=== PATIENT | male | born 1965 | race Caucasian/White ===

== ENCOUNTER 2017-01-29 06:22 | Emergency (ER) | payer MEDICAID, OTHER ==
[~2017-01-29] VITALS: Ht 175.3 cm; Wt 71.0 kg
[~2017-01-29 06:22] MED LIST: BEN50; DIVA500T33; SERAQUEL; VENTOLIN; [UNRECOGNIZED DRUG - CODE]
[2017-01-29 06:57] VITALS: Ht 175.3 cm; Wt 71.0 kg
[2017-01-29] MEDS ORDERED: MED4DP PO (07:20)
[2017-01-29] MEDS ORDERED: NAPR-260 PO (07:20)
[2017-01-29] MEDS ORDERED: CYCL-319 PO (07:20)
--- NOTE | 2017-01-29 09:16 | ERD ---
ER Documentation Chief Complaint Date/Time DATE: 01/29/17 TIME: 09:12 Chief Complaint RT FOOT WOUND X1 WEEK. DENIES HX DIABETES. HPI 51-year-old male complaining of left hip pain and callus on left sole of foot. Patient denies diabetes. Denies fever. He has not taken medications for his back pain. He does have a history of seizures with last seizure being 2 days ago. Currently takes Depakote for seizure condition. Patient states that left back pain radiates down the left buttock to the back of the leg. Denies any calf tenderness. ROS All systems reviewed and are negative except as per history of present illness. Medications Home Meds Active Scripts Naproxen* (Naprosyn*) 500 Mg Tablet, 500 MG PO BID Y for PAIN AND/OR INFLAMMATION, #30 TAB Prov:AGUILAR MCGHEE PA-C 01/29/17 Cyclobenzaprine Hcl* (Cyclobenzaprine Hcl*) 10 Mg Tablet, 10 MG PO TID, #15 TAB Prov:AGUILAR MCGHEE PA-C 01/29/17 Methylprednisolone* (Medrol* DOSE PACK) 4 Mg/Dose-Pack Tab.ds.pk, 4 MG PO . DIRECTED, #1 PACKET Prov:AGUILAR MCGHEE PA-C 01/29/17 Reported Medications [Ventolin] No Conflict Check 12/01/09 Metaproterenol Sulfate (Alupent) 14 Gm Aer.w.adap 12/01/09 Diphenhydramine Hcl* (Benadryl*) 50 Mg Cap 12/01/09 [Seraquel] 100 GM No Conflict Check 12/01/09 Divalproex Sodium (Depakote) 500 Mg Tablet. 12/01/09 Allergies Allergies: Coded Allergies: Penicillins (Verified Allergy, Mild, SWELLING, 12/17/13) PMhx/Soc History of Surgery: No Anesthesia Reaction: No Hx Neurological Disorder: No (seizure) Hx Respiratory Disorders: Yes (ASTHMA , EMPHYSEMA ) Hx Cardiac Disorders: No Hx Psychiatric Problems: No Hx Miscellaneous Medical Probl: No Hx Alcohol Use: Yes Hx Substance Use: No Hx Tobacco Use: Yes Smoking Status: Current every day smoker Physical Exam Vitals Vital Signs Date Time Temp Pulse Resp B/P Pulse Ox O2 Delivery O2 Flow Rate FiO2 01/29/17 06:57 98.0 72 16 129/83 99 Physical Exam GENERAL: The patient is well-appearing, well-nourished, in no acute distress CHEST: Clear to auscultation bilaterally. There are no rales, wheezes or rhonchi. HEART: Regular rate and rhythm. No murmurs, clicks, rubs or gallops. No S3 or S4. BACK: No midline tenderness. Patient has tenderness to palpation over the left paraspinous region extending down the left sciatic nerve. EXTREMITIES: Equal pulses bilaterally. There is no peripheral clubbing, cyanosis or edema. No focal swelling or erythema. Full range of motion. Grossly neurovascularly intact. NEUROLOGIC: Alert and oriented. Cranial nerves II through XII intact. Motor strength in all 4 extremities with 5 out of 5 strength. Sensation grossly intact. Normal speech and gait. Babinski negative. DTR 2+ throughout. SKIN: Closed callus noted on the sole of the left foot. No skin openings, no erythema, no fluctuance or vesicle formation. Procedures/MDM 51-year-old male complaining of left sciatic pain. I have low suspicion for discitis, epidural abscess or cauda equina. Patient's pain down left leg is likely associated with nerve irritation. I have low suspicion for DVT or vascular insufficiency. I have low suspicion for infectious etiology. There is no erythema warmth noted to the left foot or left leg. Patient's vital signs are stable. Patient will be discharged with pain medication and recommended to follow-up with primary care within 1-2 days for close evaluation. I have low suspicion for osteomyelitis or skin infection. Patient is discharged with strict ER precautions Departure Diagnosis: Primary Impression: Back pain Condition: Stable Patient Instructions: Back Pain (Acute Or Chronic) Additional Instructions: FOLLOW UP WITH YOUR PRIMARY CARE PHYSICIAN TOMORROW.Return to this facility if you are not improving as expected. AGUILAR MCGHEE PA-C Jan 29, 2017 09:15
== END 2017-01-29 07:53 | disposition home or self-care (01) ==
LOC: FTE 06:22
DX: M54.42 Lumbago with sciatica, left side (principal); J45.909 Unspecified asthma, uncomplicated; F17.210 Nicotine dependence, cigarettes, uncomplicated; E11.9 Type 2 diabetes mellitus without complications
CPT/HCPCS: 99283